=== PATIENT | female | born 2000 | race Hispanic/Latino ===

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

== ENCOUNTER 2021-05-08 18:55 | Emergency (ER) | payer OTHER ==
--- OUTSIDE RECORDS SUMMARY | 2021-05-08 18:58 | XMS REPORT | Continuity of Care Document ---
:2000 Author Organization [facility] Address [address] [place] [address] [address] [place] [address] Care Team Providers Name Role Phone Jyothi Mendoza Attending Clinician Isadora Whittaker Attending Clinician Isadora SERRA Attending Clinician Unavailable Doctor Unassigned, Name Attending Clinician Unavailable Payers Payer Name Policy Type Policy Number Effective Date Expiration Date Emily santa [id number] 2020 00:00:00 Advance Directives Directive Decision Effective Termination Comments Source Date Date Healthcare Agents on N/A Univ ersity FileNameRelationshipHealthcare [facility] Agent Medical RelationshipCommunicationC[facility] Clinic Foundation Branch [facility] [phone] (Home) Problems Condition Condition Condition Status Onset Resolution Last Treating Co mments Source Name Details Category Date Date Treatment Clinician Date Screening Screening Disease Active Uni vers examinatio examinatio 09-20 it y of n [place] 00 Medi theresa transmitte transmitte Br anch d disease) d disease) Nexplanon Nexplanon Disease Active Uni vers in place in place 09-20 ity of 00:00: [place] 00 Medical Branch Need for Need for Disease Active Unive rs HPV HPV 09-20 [place] Class 2 Class 2 Disease Active Univers obesity obesity 09-20 [place] of [place] body [place] mass index mass index 00 Me dical (BMI) of (BMI) of Branch 37.0 to 37.0 to 37.9 in 37.9 in adult, adult, unspecifie unspecifie d obesity d obesity type, type, unspecifie unspecifie d whether d whether serious serious comorbidit comorbidit y present y present BMI BMI Disease Active Univers 37.0-37.9, 37.0-37.9, 5-28 it y of adult adult 00:00: [place] 00 Medical Branch Allergies, Adverse Reactions, Alerts Allergy Allergy Status Severity Reaction(s) Onset Inactive Treating Comm ents Source Name Type Date Date Clinician NO KNOWN Drug Active Univers ALLERGIE Class ity of S [facility] Social History Social Habit Start Date Stop Date Quantity Comments Source History SDOH University o f Alcohol Std [place] [facility] Drinks [facility] History SDMS University o f Alcohol Binge [place] [facility] Exposure to Not sure [facility] SARS-CoV-2 [facility] (event) Branch Tobacco use and 2020-10-15 2020-10-15 Never used Universit y of exposure 00:00:00 00:00:00 [facility] Alcohol intake 2020-10-15 2020-10-15 Lifetime University of 00:00:00 00:00:00 non-drinker [facility] (finding) Branch History SDOH 2020-09-20 2020-09-20 1 University o f Alcohol Frequency 00:00:00 00:00:00 [facility] Sex Assigned At [birth year] Universit y of 00:00:00 00:00:00 [facility] Smoking Status Start Date Stop Date Source Unknown if ever smoked Universit y [facility] Never smoker [facility] Medications Ordered Filled Start Stop Current Ordering Indication Dosage Frequency Signature Comments Components Source Medication Medication Date Date Medication? Clinician (SIG) Name Name No known No Univers medications [facility] No known No Univers medications [facility] No known No Univers medications [facility] No known No Univers medications [facility] Immunizations Ordered Filled Immunization Date Status Comments Sourc e Immunization Name Name HPV9 2020-09-20 Completed University of 00:00:00 [facility]9 2020-09-20 Completed University of 00:00:00 [facility] 2020-09-20 Completed University of 00:00:00 [facility] 2020-09-20 Completed University of 00:00:00 [facility] Vital Signs Vital Name Observation Time Observation Value Comments Source Systolic blood 2020-10-15 14:18:00 120 mm[Hg] Univer sity of pressure [place] [facility] Diastolic blood 2020-10-15 14:18:00 80 mm[Hg] Unive rsity of pressure [place] [facility] Heart rate 2020-10-15 14:18:00 78 /min Universi ty [facility] [place] [facility] Body temperature 2020-10-15 14:18:00 36.94 Shahana Univ ersity of [facility] Branch Respiratory rate 2020-10-15 14:18:00 16 /min Univ ersity of [place] [facility] Body height 2020-10-15 14:18:00 160 cm [facility]i ty [facility] [place] [facility] Body weight 2020-10-15 14:18:00 96.344 kg [facility] [place] [facility] BMI 2020-10-15 14:18:00 37.62 kg/m2 [facility] ty [facility] [place] [facility] Systolic blood 2020-09-20 13:24:00 118 mm[Hg] Univer sity of pressure [place] [facility] Diastolic blood 2020-09-20 13:24:00 89 mm[Hg] Unive rsity of pressure [place] [facility] Heart rate 2020-09-20 13:24:00 75 /min [facility]i ty [facility] [place] [facility] Body temperature 2020-09-20 13:24:00 36.78 Shahana Univ ersity of [place] [facility] Respiratory rate 2020-09-20 13:24:00 16 /min Univ ersity of [place] [facility] Body height 2020-09-20 13:24:00 161.3 cm [facility] ty [facility] [place] [facility] Body weight 2020-09-20 13:24:00 96.798 kg [facility] ty [facility] [place] [facility] BMI 2020-09-20 13:24:00 37.21 kg/m2 [facility] [place] [facility] Procedures Procedure Date / Time Performed Performing Clinician Caden ramirez GARDASIL 9 (HPV 9V) 2020-09-20 13:56:31 Yadiel Serra [facility] [place] VACCINE [facility] Branch NOTICE OF PRIVACY 2020-09-20 13:09:22 Doctor Unassigned, No Univ [facility] [place] PRACTICES Name Medical Branch Encounters Start End Encounter Admission Attending Care Care Encounter Source Date/Time Date/Time Type Type Clinicians Facility Department ID 2020-10-22 2020-10-22 Outpatient R [facility] [id number] Univers 08:30:00 08:30:00 [id number] ity [facility] 2020-10-22 2020-10-22 Outpatient R [facility] [id number] Univers 08:30:00 08:30:00 ity [facility] 2020-10-15 2020-10-15 Office Jyothi Hernández [facility] [id number] Univers 08:38:09 09:43:28 Visit Yadiel Serra R [employer]ISK [employer] PRODUCT LIABILITY DIRECTOR [id number] ity of [facility] [id number] [place] as MATERNAL [phone] [facility] & CHILD [address] [place] [address] 2020-10-15 2020-10-15 [facility] [id number] Univers 08:30:00 08:30:00 YUEBRE [id number] ity o [facility] 2020-10-15 2020-10-15 [facility] [id number] Univers 08:30:00 08:30:00 YUECECELIACarol correa o lana [facility] 2020-09-20 2020-09-20 Office Ponce [facility] [id number] Univers 08:14:29 09:03:21 Visit Yadiel Muir [employer]K [employer]OL PRODUCT LIABILITY DIRECTOR [id number] ity of [facility] [id number] [place] as MATERNAL [phone] [facility] & [address] 2020-09-20 2020-09-20 Outpatient R PONCE [facility] [id number] Univers 08:00:00 08:00:00 YUECECELIACarol ity o lana [facility] 2020-09-20 2020-09-20 Orders Doctor PAYNE [id number] Univers 00:00:00 00:00:00 Only Unassigned, TIGRE [id number] ity of Patrick [facility] [id number] [place] as [phone] Medi theresa 009 Branch Results This patient has no known results.
[2021-05-08] MEDS ORDERED: AZITHROMYCIN 250 MG TAB ONE (22:53)
[2021-05-08] MEDS ORDERED: FAMOTIDINE 20 MG TAB ONE (22:53)
--- NOTE | 2021-05-08 23:03 | ER ---
Nurse's Notes [facility] Name: Carolyn Monsalve Age: 20 yrs Sex: Female : 2000 Arrival Date: 05/08/2021 Time: 19:16 Bed 22 Private MD: Diagnosis: Coronavirus infection, unspecified;Acute upper respiratory infection, unspecified;13 weeks gestation of Presentation: 05/08 20:22 Chief complaint: Patient states: i need a covid test; i lost taste and smell todsy and ld1 a cough and congestion since wednesday. Coronavirus screen: Vaccine status: Patient reports receiving the 1st dose of the Covid vaccine. Client denies travel out of the [place] in the last 14 days. Ebola Screen: Patient negative for fever greater than or equal to 101.5 degrees Fahrenheit, and additional compatible Ebola Virus Disease symptoms Patient denies exposure to infectious person. Patient denies travel to an Ebola-affected area in the 21 days before illness onset. Initial Sepsis Screen: Does the patient meet any 2 criteria? No. Patient's initial sepsis screen is negative. Does the patient have a suspected source of infection? No. Patient's initial sepsis screen is negative. Risk Assessment: Do you want to hurt yourself or someone else? Patient reports no desire to harm self or others. Onset of symptoms was May 05, 2020. 20:22 Method Of Arrival: Ambulatory ld1 20:22 Acuity: PATRICK 4 ld1 Triage Assessment: 20:24 General: Appears in no apparent distress. uncomfortable, obese, Behavior is calm, ld1 cooperative, appropriate for age. Pain: Denies pain. 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 - Social history:: Smoking status: Patient denies any tobacco usage or history of. Screenin:40 Abuse screen: Denies threats or abuse. Denies injuries from another. Nutritional ld1 screening: No deficits noted. Tuberculosis screening: No symptoms or risk factors identified. Fall Risk None identified. Assessment: 21:40 Reassessment: See triage assessment. Respiratory: Airway is patent Respiratory effort ld1 is Breath sounds are clear bilaterally. EENT: Throat is pink. Vital Signs: 20:22 BP 138 / 93; Pulse 95; Resp 20; Temp 98.5; Pulse Ox 95% ; Weight 92.53 kg; Height 5 ft. ld1 6 in. (167.64 cm); 20:22 Body Mass Index 32.93 (92.53 kg, 167.64 cm) ld1 ED Course: 19:16 Patient arrived in ED. as 20:24 Triage completed. ld1 20:24 Arm band placed on right wrist. ld1 21:36 Jose E Steele MD is Attending Physician. [facility] 21:39 SARS-COV-2 RT PCR Sent. tw5 21:40 Eliane Palomino, JOEY is Primary Nurse. ld1 21:40 Patient has correct armband on for positive identification. Call light in reach. Pulse ld1 ox on. NIBP on. Door closed. Noise minimized. 21:40 No provider procedures requiring assistance completed. ld1 22:44 Notified ED physician of a critical lab result(s). Covid +. tw5 23:03 Enrrique Tate MD is Referral Physician. nisreen 23:18 Patient did not have IV access during this emergency room visit. ld1 Administered Medications: 22:53 Drug: Zithromax (azithromycin) 500 mg Route: PO; ld1 22:53 Drug: Pepcid (famotidine) 20 mg Route: PO; ld1 23:18 Not Given (not in pyciss): Montelukast 10 mg PO once ld1 Outcome: 23:02 Discharge ordered by . nisreen 23:18 Discharged to home ambulatory. ld1 23:18 Condition: stable 23:18 Discharge instructions given to patient, Instructed on discharge instructions, follow up and referral plans. Demonstrated understanding of instructions, follow-up care. 23:18 Patient left the ED. ld1 Signatures: Jose E Steele MD MD cha Martinez, Amelia as Dibbern, Lauren, JOEY RN ld1 Rosy Jack tw5 Corrections: (The following items were deleted from the chart) 20:24 20:24 Home Meds: Vitamin Oral; ld1 ld1
--- NOTE | 2021-05-08 23:03 | EDPHYS ---
Physician Documentation [facility] Name: Carolyn Monsalve Age: 20 yrs Sex: Female : 2000 Arrival Date: 05/08/2021 Time: 19:16 Bed 22 Private MD: ED Physician Jose E Steele HPI: 05/08 22:51 This 20 yrs old Female presents to ER via Ambulatory with complaints of Cough, nisreen Sore Throat, Vomiting, Fatigue. 22:51 The patient or guardian reports cough, described as mild, flu symptoms, arthralgias, nisreen low-grade fever, myalgias. Onset: The symptoms/episode began/occurred 2 day(s) ago. Severity of symptoms: At their worst the symptoms were mild, in the emergency department the symptoms are unchanged. Modifying factors: The symptoms are alleviated by nothing, the symptoms are aggravated by nothing. Associated signs and symptoms: Pertinent positives: rhinorrhea, sore throat. The patient has experienced similar episodes in the past, several times. TREER: 20:24 LMP 02/2021 ld1 Historical: - Allergies: 20:24 No Known Allergies; ld1 - Home Meds: 20:24 None [Active]; ld1 - PMHx: 20:24 None; ld1 - Immunization history:: Adult Immunizations up to date. - Social history:: Smoking status: Patient denies any tobacco usage or history of. ROS: 22:54 Constitutional: Negative for fever, chills, and weight loss, Eyes: Negative for injury, nisreen pain, redness, and discharge, ENT: Negative for injury, pain, and discharge, Neck: Negative for injury, pain, and swelling, Cardiovascular: Negative for chest pain, palpitations, and edema, Abdomen/GI: Negative for abdominal pain, nausea, vomiting, diarrhea, and constipation, Back: Negative for injury and pain, : Negative for injury, bleeding, discharge, and swelling, MS/Extremity: Negative for injury and deformity, Skin: Negative for injury, rash, and discoloration, Neuro: Negative for headache, weakness, numbness, tingling, and seizure. 22:54 Respiratory: Positive for cough, "sounds productive". 22:54 Abdomen/GI: Positive for abdominal distension. Exam: 22:54 Constitutional: This is a well developed, well nourished patient who is awake, alert, nisreen and in no acute distress. Head/Face: Normocephalic, atraumatic. Eyes: Pupils equal round and reactive to light, extra-ocular motions intact. Lids and lashes normal. Conjunctiva and sclera are non-icteric and not injected. Cornea within normal limits. Periorbital areas with no swelling, redness, or edema. ENT: Nares patent. No nasal discharge, no septal abnormalities noted. Tympanic membranes are normal and external auditory canals are clear. Oropharynx with no redness, swelling, or masses, exudates, or evidence of obstruction, uvula midline. Mucous membranes moist. Neck: Trachea midline, no thyromegaly or masses palpated, and no cervical lymphadenopathy. Supple, full range of motion without nuchal rigidity, or vertebral point tenderness. No Meningismus. Chest/axilla: Normal chest wall appearance and motion. Nontender with no deformity. No lesions are appreciated. Cardiovascular: Regular rate and rhythm with a normal S1 and S2. No gallops, murmurs, or rubs. Normal PMI, no JVD. No pulse deficits. Respiratory: Lungs have equal breath sounds bilaterally, clear to auscultation and percussion. No rales, rhonchi or wheezes noted. No increased work of breathing, no retractions or nasal flaring. Abdomen/GI: Soft, non-tender, with normal bowel sounds. No distension or tympany. No guarding or rebound. No evidence of tenderness throughout. Back: No spinal tenderness. No costovertebral tenderness. Full range of motion. Skin: Warm, dry with normal turgor. Normal color with no rashes, no lesions, and no evidence of cellulitis. MS/ Extremity: Pulses equal, no cyanosis. Neurovascular intact. Full, normal range of motion. Neuro: Awake and alert, GCS 15, oriented to person, place, time, and situation. Cranial nerves II-XII grossly intact. Motor strength 5/5 in all extremities. Sensory grossly intact. Cerebellar exam normal. Normal gait. Psych: Awake, alert, with orientation to person, place and time. Behavior, mood, and affect are within normal limits. Vital Signs: 20:22 BP 138 / 93; Pulse 95; Resp 20; Temp 98.5; Pulse Ox 95% ; Weight 92.53 kg; Height 5 ft. ld1 6 in. (167.64 cm); 20:22 Body Mass Index 32.93 (92.53 kg, 167.64 cm) ld1 MDM: 21:36 Patient medically screened. [facility] 22:57 Differential Diagnosis: Bronchitis Influenza Upper Respiratory Infection Sinusitis nisreen Pharyngitis Otitis Media Viral Syndrome Pneumonia. Data reviewed: vital signs, nurses notes, lab test result(s). Data interpreted: towel stretcher: rate is 95 beats/min, rhythm is regular, Pulse oximetry: on room air is 95 %. Counseling: I had a detailed discussion with the patient and/or guardian regarding: the historical points, exam findings, and any diagnostic results supporting the discharge/admit diagnosis, lab results, the need for outpatient follow up, for definitive care, a family practitioner. 05/08 21:28 Order name: SARS-COV-2 RT PCR EDMS Administered Medications: 22:53 Drug: Zithromax (azithromycin) 500 mg Route: PO; ld1 22:53 Drug: Pepcid (famotidine) 20 mg Route: PO; ld1 23:18 Not Given (not in pyciss): Montelukast 10 mg PO once ld1 Disposition Summary: 05/08/21 23:02 Discharge Ordered Location: Home [facility] Problem: new [facility] Symptoms: have improved nisreen Condition: Stable nisreen Diagnosis - Coronavirus infection, unspecified nisreen - Acute upper respiratory infection, unspecified nisreen - 13 weeks gestation of nisreen Followup: nisreen - With: Private Physician - When: 2 - 3 days - Reason: Recheck today's complaints, Continuance of care, Re-evaluation by your physician Followup: nisreen - With: Enrrique Tate MD - When: 2 - 3 days - Reason: Recheck today's complaints, Continuance of care, Re-evaluation by your physician Discharge Instructions: - Discharge Summary Sheet nisreen - Care nisreen - Upper Respiratory Infection, Adult nisreen - Cool Mist Vaporizer nisreen - Upper Respiratory Infection, Adult, [id number] nisreen - Viral Respiratory Infection, [id number] nisreen - COVID-19 [facility] - COVID-19 Frequently Asked Questions [facility] - 10 Things You Can Do to Manage Your COVID-19 Symptoms at Home - [facility] nisreen - COVID-19: Quarantine vs. Isolation - [facility] Forms: - Medication Reconciliation Form [facility] - Thank You Letter nisreen - Antibiotic Education nisreen - Prescription Opioid Use [facility] Prescriptions: - Pepcid 20 mg Oral Tablet - take 1 tablet by ORAL route every 12 hours for 10 days; 20 tablet; Refills: 0, nisreen Product Selection Permitted - Zithromax Z-Carlos 250 mg Oral Tablet - take 1 tablet by ORAL route as directed for 5 days Day 1 - take two (2) tablets [facility] one time. Day 2, 3, 4 , 5 take one (1) tablet once daily.; 6 tablet; Refills: 0, Product Selection Permitted - Singulair 10 mg Oral Tablet - take 1 tablet by ORAL route At bedtime; 20 tablet; Refills: 0, Product nisreen Selection Permitted Signatures: Dispatcher [employer] EDJose E Blevins MD MD cha Dibbern, Lauren RN RN ld1 Corrections: (The following items were deleted from the chart) 20:24 20:24 Home Meds: Vitamin Oral; ld1 ld1
[2021-05-08 23:36] VITALS: BP 138/93; TEMP 98.5; O2SAT 95
== END 2021-05-08 23:18 | disposition home or self-care (01) ==
LOC: ER 18:55
DX: O98.511 Other viral diseases complicating pregnancy, first trimester (principal); U07.1 COVID-19; Z3A.13 13 weeks gestation of pregnancy; J06.9 Acute upper respiratory infection, unspecified
CPT/HCPCS: 99283; U0003

== ENCOUNTER 2021-06-11 09:15 | Emergency (ER) | payer OTHER ==
--- OUTSIDE RECORDS SUMMARY | 2021-06-11 09:19 | XMS REPORT | Continuity of Care Document ---
:2000 Author Organization [facility] Address [address] [place] [address] [address] [place] [address] Care Team Providers Name Role Phone Jyothi Mendoza Attending Clinician Isadora Whittaker Attending Clinician Isadora SERRA Attending Clinician Unavailable Doctor Unassigned, Name Attending Clinician Unavailable Payers Payer Name Policy Type Policy Number Effective Date Expiration Date Emily santa [id number] 2020 00:00:00 Advance Directives Directive Decision Effective Termination Comments Source Date Date Healthcare Agents on N/A Univ ersity FileNameRelationshipHealthcare [facility] Agent Medical [facility]Communication[facility] [phone] (Home) Problems Condition Condition Condition Status Onset [...] 5-28 it y of adult adult 00:00: [place] 00 Medical Branch Allergies, Adverse Reactions, Alerts Allergy Allergy Status Severity Reaction(s) Onset Inactive Treating Comm ents Source Name Type Date Date Clinician NO KNOWN Drug Active Univers ALLERGIE Class ity of S [facility] Social History Social Habit Start Date Stop Date Quantity Comments Source History SDOH University o f Alcohol Std [place] [facility] History SDSD University o f Alcohol Binge [place] [facility] Exposure to Not sure [facility] SARS-CoV-2 [facility] (event) Branch Tobacco use and 2020-10-15 2020-10-15 Never used Universit y of exposure 00:00:00 00:00:00 [facility] Alcohol intake 2020-10-15 2020-10-15 Lifetime University of 00:00:00 00:00:00 non-drinker [facility] (finding) Branch History SDOH 2020-09-20 2020-09-20 1 University o f Alcohol Frequency 00:00:00 00:00:00 [facility] Sex Assigned At [birth year] Universit y of 00:00:00 00:00:00 [facility] Smoking Status Start Date Stop Date Source Unknown if ever smoked Universit y [facility] Never sm[facility] Medications Ordered Filled Start Stop Current Ordering Indication Dosage Frequency Signature Comments Components Source Medication Medication Date Date Medication? Clinician (SIG) Name Name No known No Univers medications [facility] No known No Univers medications [facility] No known No Univers medications [facility] No known No Univers medications [facility] Immunizations Ordered Filled Immunization Date Status Comments Sourc e Immunization Name Name HPV9 2020-09-20 Completed University of 00:00:00 [facility] 2020-09-20 Completed University of 00:00:00 [facility] 2020-09-20 Completed University of 00:00:00 [facility] 2020-09-20 Completed University of 00:00:00 [facility] Vital Signs Vital Name Observation Time Observation Value Comments Source Systolic blood 2020-10-15 14:18:00 120 mm[Hg] Univer sity of pressure [place] [facility] Diastolic blood 2020-10-15 14:18:00 80 mm[Hg] Unive rsity of pressure [place] [facility] Heart rate 2020-10-15 14:18:00 78 /min Universi ty [facility] [place] [facility] Body temperature 2020-10-15 14:18:00 36.94 Shahana Univ ersity of [facility] Branch Respiratory rate 2020-10-15 14:18:00 16 /min Univ ersity of [place] [facility] Body height 2020-10-15 14:18:00 160 cm [facility]i ty [facility] [place] [facility] Body weight 2020-10-15 14:18:00 96.344 kg [facility] [place] [facility] BMI 2020-10-15 14:18:00 37.62 kg/m2 [facility] [place] [facility] Systolic blood 2020-09-20 13:24:00 118 mm[Hg] Univer sity of pressure [place] [facility] Diastolic blood 2020-09-20 13:24:00 89 mm[Hg] Unive rsity of pressure [place] [facility] Heart rate 2020-09-20 13:24:00 75 /min [facility] [place] [facility] Body temperature 2020-09-20 13:24:00 36.78 Shahana Univ ersity of [place] [facility] Respiratory rate 2020-09-20 13:24:00 16 /min Univ ersity of [place] [facility] Body height 2020-09-20 13:24:00 161.3 cm [facility] [place] [facility] Body weight 2020-09-20 13:24:00 96.798 kg [facility] [place] [facility] BMI 2020-09-20 13:24:00 37.21 kg/m2 [facility] [place] [facility] Procedures Procedure Date / Time Performed Performing Clinician Caden ramirez GARDASIL 9 (HPV 9V) 2020-09-20 13:56:31 [facility]adiel Serra [facility] [place] VACCINE [facility] Branch NOTICE OF PRIVACY 2020-09-20 13:09:22 Doctor Unassigned, No [facility] [place] PRACTICES Name Medical Branch Encounters Start End Encounter Admission Attending Care Care Encounter Source Date/Time Date/Time Type Type Clinicians Facility Department ID 2020-10-22 2020-10-[address] [facility] [id number] Univers 08:30:00 08:30:00 [id number] ity [facility] 2020-10-22 2020-10-[address] [facility] [id number] Univers 08:30:00 08:30:00 ity [facility] 2020-10-15 2020-10-15 Office Jyothi Hernández [facility] [id number] Univers 08:38:09 09:43:28 Visit Yadiel Serra R [employer] [id number] ity of [facility] [id number] [place] as MATERNAL [phone] [facility] & CHILD [address] [place] [address] 2020-10-15 2020-10-15 [facility] [id number] Univers 08:30:00 08:30:00 YUEBRE [id number] ity o [facility] 2020-10-15 2020-10-15 [facility] [id number] Univers 08:30:00 08:30:00 YUECECELIACarol correa o lana [facility] 2020-09-20 2020-09-20 Office Ponce [facility] [id number] Univers 08:14:29 09:03:21 Visit Yadiel Muir [employer] [id number] ity of [facility] [id number] [place] as MATERNAL [phone] [facility] & [address] 2020-09-20 2020-09-[address] [facility] [id number] Univers 08:00:00 08:00:00 YUECECELIACarol ity o lana [facility] 2020-09-20 2020-09-20 Orders Doctor PAYNE [id number] Univers 00:00:00 00:00:00 Only Unassigned, TIGRE [id number] ity of [place] [facility] [id number] [place] as [phone] Medi theresa 009 Branch Results This patient has no known results.
[2021-06-11 09:47] LABS: Urine Blood 1+ (Negative); Urine Glucose Negative (Negative); Urine Protein Negative (Negative)
[2021-06-11 09:51] LABS: Absolute Lymphocytes (CBC) 1.7 K/uL (0.7-4.9); Hematocrit 39.3 % (36.0-45.0); Lymphocytes % 18.8 % (15.3-44.8); MPV 8.3 fL (7.6-11.3); RBC Red Blood Cell Count 4.52 M/uL (3.86-4.86)
[2021-06-11 10:42] LABS: ALT/SGPT 28 U/L (12-78); AST/SGOT 13 U/L (15-37); Alkaline Phosphatase 88 U/L (45-117); BUN Blood Urea Nitrogen 3 mg/dL (7-18); Bicarbonate 23 mmol/L (21-32); Bilirubin Direct < 0.1 mg/dL (0-0.2); Bilirubin Total 0.2 mg/dL (0.2-1.0); Glucose Level 107 mg/dL (74-106); HCG, Quantitative 17954 mIU/mL (1-3); Lipase 60 U/L (73-393); Potassium 3.6 mmol/L (3.5-5.1); Protein, Total 7.1 g/dL (6.4-8.2); Sodium Level 138 mmol/L (136-145)
[2021-06-11] MEDS ORDERED: ACETAMINOPHEN 500 MG TAB ONE (10:43)
--- NOTE | 2021-06-11 12:29 | RAD REPORT ---
EXAM DESCRIPTION: US - OB Limited - 06/11/2021 11:32 am CLINICAL HISTORY: with vaginal bleeding COMPARISON: None FINDINGS: Limited OB ultrasound performed at of the emergency room for vaginal bleeding. Single live intrauterine in cephalic presentation. Placenta is fundal. No placenta previa. No retroplacental/ subchorionic bleed. Amniotic fluid within normal limits. Cervix 4.3 centimeters. C ardiac activity 179 beats per minute BPD 3.7 centimeters 17 weeks 2 days HC 13.5 centimeters 17 weeks 0 days AC 11.7 centimeters 17 weeks 4 days FL 2.3 centimeter 17 weeks 0 days Estimated weight 186 grams ratios within normal limits IMPRESSION: Single live intrauterine in cephalic presentation The estimated gestational age 17 weeks 2 days INGRID 11/17/2021 If a survey is desired it should be performed in approximately 1 week
[2021-06-11 13:27] LABS: Urine Bacteria 20-50 /HPF (<20); Urine RBC <5 /HPF (NONE SEEN)
--- NOTE | 2021-06-11 14:19 | ER ---
Nurse's Notes [facility] Name: Carolyn Monsalve Age: 20 yrs Sex: Female : 2000 Arrival Date: 06/11/2021 Time: 09:18 Bed 24 Private MD: Diagnosis: Threatened ;UTI/ Urinary tract infection, site not specified Presentation: 06/11 09:24 Chief complaint: Patient states: I am 17 weeks and I woke up this morning with jg9 bleeding, so far I have only used 1 pad, but I am having some cramping in my lower abdomen that is intermittent, no recent sexual activity or injuries reported. 2 Para 1, INGRID 11/13/2021, patient is not under the care of a obgyn. Coronavirus screen: Vaccine status: Patient reports receiving the 1st dose of the Covid vaccine. Moderna. Ebola Screen: Patient negative for fever greater than or equal to 101.5 degrees Fahrenheit, and additional compatible Ebola Virus Disease symptoms Patient denies exposure to infectious person. Patient denies travel to an Ebola-affected area in the 21 days before illness onset. Initial Sepsis Screen: Does the patient meet any 2 criteria? No. Patient's initial sepsis screen is negative. Does the patient have a suspected source of infection? No. Patient's initial sepsis screen is negative. Risk Assessment: Do you want to hurt yourself or someone else? Patient reports no desire to harm self or others. Onset of symptoms was June 11, 2021. 09:24 Method Of Arrival: Ambulatory 9 09:24 Acuity: PATIRCK 3 jg9 Triage Assessment: 09:28 : Reports vaginal bleeding that is with clots, light flow. jg9 09:28 General: Appears uncomfortable, Behavior is anxious. Pain: Complains of pain in abdomen jg9 Pain currently is 5 out of 10 on a pain scale. 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 - Social history:: Smoking status: Patient denies any tobacco usage or history of. Screenin:27 Abuse screen: Denies threats or abuse. Denies injuries from another. Nutritional jg9 screening: No deficits noted. Tuberculosis screening: No symptoms or risk factors identified. Fall Risk None identified. Assessment: 10:44 General: Appears in no apparent distress. comfortable, Behavior is calm, cooperative. ic1 Pain: Complains of pain in abdomen. Neuro: Level of Consciousness is awake, alert, obeys commands, Oriented to person, place, time, situation. Cardiovascular: No deficits noted. Respiratory: No deficits noted. GI: No deficits noted. : Urine is clear, Reports cramping, pain. EENT: No deficits noted. Derm: No deficits noted. 11:50 Reassessment: Pt returned from ultrasound. In NAD. ic1 Vital Signs: 09:24 BP 133 / 86; Pulse 89; Resp 14 S; Temp 98.1(TE); Pulse Ox 100% on R/A; Weight 92.53 kg jg9 (R); Height 5 ft. 3 in. (160.02 cm) (R); 10:44 BP 100 / 68; Pulse 66; Resp 16; Pulse Ox 99% on R/A; ic1 12:40 BP 101 / 66; Pulse 72; Resp 16; Pulse Ox 99% on R/A; ic1 14:23 BP 110 / 66; Pulse 67; Resp 16; Pulse Ox 100% on R/A; ic1 09:24 Body Mass Index 36.14 (92.53 kg, 160.02 cm) jg9 ED Course: 09:18 Patient arrived in ED. mr 09:27 Triage completed. jg9 09:28 Arm band placed on left wrist. jg9 09:30 Perla Kay, JOEY is Primary Nurse. ic1 09:36 Jose E Hoang PA is PHCP. cp 09:36 Florencio Grant MD is Attending Physician. cp 09:47 Basic Metabolic Panel Sent. ic1 09:47 Hepatic Function Sent. ic1 09:47 CBC with Diff Sent. ic1 09:47 Lipase Sent. ic1 10:35 Abo/rh Typing Sent. ic1 10:35 Urine --Ancillary (enter results) Sent. ic1 10:45 Patient has correct armband on for positive identification. Bed in low position. Call ic1 light in reach. Side rails up X2. Pulse ox on. NIBP on. Door closed. Lights dimmed. Warm blanket given. 10:45 Inserted saline lock: 20 gauge in right antecubital area, using aseptic technique. ic1 Blood collected. 11:25 OB Limited In Process Unspecified. EDMS 14:17 Enrrique Tate MD is Referral Physician. cp 14:20 IV discontinued, intact, bleeding controlled, No redness/swelling at site. Pressure ic1 dressing applied. Administered Medications: 10:44 Drug: Tylenol 1000 mg Route: PO; ic1 14:27 Follow up: Response: No adverse reaction; Pain is decreased ic1 Point of Care Testing: Urine : 10:44 hCG Reading: Positive; Control Reading: Positive; ic1 Outcome: 14:18 Discharge ordered by . cp 14:20 Discharged to home ambulatory. ic1 14:20 Condition: stable 14:20 Discharge instructions given to patient, Instructed on discharge instructions, follow up and referral plans. 14:27 Patient left the ED. ic1 Signatures: Dispatcher [employer] EDFL MartinsCharla gonzalez Jose E Hoang, Lilia Mcdonald cp, RN RN jg9 Perla Kay RN RN ic1 Corrections: (The following items were deleted from the chart) 09:34 09:24 Chief complaint: Patient states: I am 17 weeks and I woke up this jg9 morning with bleeding, so far I have only used 1 pad, but I am having some cramping in my lower abdomen that is intermittent, no recent sexual activity or injuries reported. 2 Para 1 jg9 10:37 10:36 Temp 100.3F Oral; ic1 ic1 11:25 11:23 In radiology for Transvaginal Ob+US.RAD.BRZ. EDMS EDMS
--- NOTE | 2021-06-11 14:19 | EDPHYS ---
Physician Documentation [facility] Name: Carolyn Monsalve Age: 20 yrs Sex: Female : 2000 Arrival Date: 06/11/2021 Time: 09:18 Bed 24 Private MD: ED Physician Florencio Grant HPI: 06/11 09:40 This 20 yrs old Female presents to ER via Ambulatory with complaints of cp Vaginal Bleeding, 17 wks . 09:40 The patient presents to the emergency department with vaginal bleeding, with clots. cp 09:40 The estimated gestational age is 17 weeks. course: care: private OB cp physician, Dr. Tate, Leakage of Fluid: none appreciated, Ultrasound: the patient has not had an ultrasound. Previous pregnancies: in previous pregnancies patient has had vaginal delivery, no complications. Associated signs and symptoms: Pertinent positives: lower abdominal cramping. 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 - Social history:: Smoking status: Patient denies any tobacco usage or history of. ROS: 09:45 Constitutional: Negative for body aches, chills, fever, poor PO intake. cp 09:45 Eyes: Negative for injury, pain, redness, and discharge. cp 09:45 Cardiovascular: Negative for chest pain, palpitations. 09:45 Respiratory: Negative for cough, shortness of breath, wheezing. 09:45 Abdomen/GI: Positive for abdominal cramps, Negative for vomiting, diarrhea, constipation. 09:45 : Positive for vaginal bleeding, Negative for urinary symptoms. 09:45 Neuro: Negative for altered mental status, headache, syncope, weakness. 09:45 All other systems are negative. Exam: 09:50 Constitutional: The patient appears in no acute distress, alert, awake, non-toxic, well cp developed, well nourished, obese. 09:50 Head/Face: Normocephalic, atraumatic. cp 09:50 Eyes: Periorbital structures: appear normal, Conjunctiva: normal, no exudate, no injection, Sclera: no appreciated abnormality, Lids and lashes: appear normal, bilaterally. 09:50 ENT: External ear(s): are unremarkable, Nose: is normal, Mouth: Lips: moist, Oral mucosa: moist, Posterior pharynx: is normal, airway is patent. 09:50 Chest/axilla: Inspection: normal, Palpation: is normal, no crepitus, no tenderness. 09:50 Cardiovascular: Rate: normal, Rhythm: regular. 09:50 Respiratory: the patient does not display signs of respiratory distress, Respirations: normal, no use of accessory muscles, no retractions, labored breathing, is not present, Breath sounds: are clear throughout, no decreased breath sounds. 09:50 Abdomen/GI: Inspection: abdomen appears normal, Bowel sounds: active, all quadrants, Palpation: soft, in all quadrants, mild abdominal tenderness, in the right lower quadrant and left lower quadrant, rebound tenderness, is not appreciated, involuntary guarding, is not appreciated. 09:50 Back: CVA tenderness, is absent. 09:50 Neuro: Orientation: to person, place \T\ time. Mentation: is normal, Motor: moves all fours, strength is normal, Sensation: is normal. Vital Signs: 09:24 BP 133 / 86; Pulse 89; Resp 14 S; Temp 98.1(TE); Pulse Ox 100% on R/A; Weight 92.53 kg jg9 (R); Height 5 ft. 3 in. (160.02 cm) (R); 10:44 BP 100 / 68; Pulse 66; Resp 16; Pulse Ox 99% on R/A; ic1 12:40 BP 101 / 66; Pulse 72; Resp 16; Pulse Ox 99% on R/A; ic1 14:23 BP 110 / 66; Pulse 67; Resp 16; Pulse Ox 100% on R/A; ic1 09:24 Body Mass Index 36.14 (92.53 kg, 160.02 cm) jg9 MDM: 09:37 Patient medically screened. 14:18 Data reviewed: vital signs, nurses notes, lab test result(s), radiologic studies, cp ultrasound. 14:18 Counseling: I had a detailed discussion with the patient and/or guardian regarding: the cp historical points, exam findings, and any diagnostic results supporting the discharge/admit diagnosis, lab results, radiology results, the need for outpatient follow up, an OB/Gyne specialist, to return to the emergency department if symptoms worsen or persist or if there are any questions or concerns that arise at home. Response to treatment: the patient's symptoms have markedly improved after treatment, VSS. Patient denies any vaginal bleeding at this time. Discussed results of US showing 17 week IUP. Will discharge to home for continued monitoring. 06/11 09:32 Order name: Basic Metabolic Panel; Complete Time: 11:45 [facility] 06/11 11:45 Interpretation: Normal except: CL 109; GLUC 107; BUN 3; CRE 0.53. 06/11 09:32 Order name: CBC with Diff; Complete Time: 10:42 [facility] 06/11 10:42 Interpretation: Normal except: YVAN% 75.8. 06/11 09:32 Order name: Hepatic Function; Complete Time: 11:45 [facility] 06/11 11:45 Interpretation: Normal except: AST 13; ALB 3.0; GLOB 4.1; A/G 0.7. 06/11 09:32 Order name: Lipase; Complete Time: 11:45 [facility] 06/11 09:32 Order name: HCG-Quantitative; Complete Time: 11:45 [facility] 06/11 11:45 Interpretation: Reviewed. 06/11 09:40 Order name: Abo/rh Typing; Complete Time: 11:45 cp 06/11 09:46 Order name: Urine Dipstick-Ancillary; Complete Time: 10:42 EDKY 06/11 09:47 Order name: Urine --Ancillary (enter results) bd 06/11 09:47 Order name: Urine --Ancillary; Complete Time: 14:17 EDKY 06/11 11:25 Order name: OB Limited; Complete Time: 12:52 EDMS 06/11 12:54 Order name: Urine Microscopic Only cp 06/11 12:54 Order name: Urine Microscopic Only; Complete Time: 14:17 EDMS 06/11 13:28 Order name: Urine Culture [facility] 06/11 09:32 Order name: IV Saline Lock; Complete Time: 09:47 [facility] 06/11 09:32 Order name: Labs collected and sent; Complete Time: 09:47 [facility] 06/11 09:40 Order name: NPO; Complete Time: 09:56 cp Administered Medications: 10:44 Drug: Tylenol 1000 mg Route: PO; ic1 14:27 Follow up: Response: No adverse reaction; Pain is decreased ic1 Point of Care Testing: Urine : 10:44 hCG Reading: Positive; Control Reading: Positive; ic1 Disposition Summary: 06/11/21 14:18 Discharge Ordered Location: Home cp Problem: new cp Symptoms: have improved cp Condition: Stable cp Diagnosis - Threatened cp - UTI/ Urinary tract infection, site not specified cp Followup: cp - With: Enrrique Tate MD - When: 1 week - Reason: Recheck today's complaints Discharge Instructions: - Discharge Summary Sheet cp - Abdominal Pain During cp - Care cp - Threatened Miscarriage cp - Vaginal Bleeding During , Second Trimester cp - and Urinary Tract Infection cp Forms: - Medication Reconciliation Form cp - Thank You Letter cp - Antibiotic Education cp - Prescription Opioid Use cp Prescriptions: - Macrobid 100 mg Oral Capsule - take 1 capsule by ORAL route every 12 hours for 7 days; 14 capsule; Refills: 0, cp Product Selection Permitted Addendum: 06/13/2021 19:14 Co-signature as Attending Physician, Florencio rGant MD I agree with the assessment and k dr plan of care. Signatures: Dispatcher [employer] Florencio Vaughn MD MD [facility] Jose E Hoang PA PA cp Lilia Perez RN RN jg9 Perla Kay RN RN ic1 Corrections: (The following items were deleted from the chart) 06/11 11:25 10:42 Transvaginal Ob+US.RAD.BRZ ordered. [facility]
[2021-06-11 14:40] VITALS: TEMP 98.1
[2021-06-11 14:44] VITALS: BP 110/66; O2SAT 100
== END 2021-06-11 14:27 | disposition home or self-care (01) ==
LOC: ER 09:15
DX: O20.0 Threatened abortion (principal); O23.42 Unspecified infection of urinary tract in pregnancy, second trimester; N39.0 Urinary tract infection, site not specified; Z3A.17 17 weeks gestation of pregnancy
CPT/HCPCS: 36415; 76815; 80048; 80076; 81003; 81015; 81025; 83690; 84702; 85025; 86900; 86901; 87086; 87088; 99284

== ENCOUNTER 2021-10-03 12:37 | Emergency (ER) | payer OTHER ==
--- OUTSIDE RECORDS SUMMARY | 2021-10-03 12:40 | XMS REPORT | Continuity of Care Document ---
:[address] [facility] t Address [address] [place] [address] [address]. [address] [place] [address] Care Team Providers Name Role Phone Jyothi Mendoza Attending Clinician Isadora Whittaker Attending Clinician Isadora SERRA Attending Clinician Unavailable Doctor Unassigned, Name Attending Clinician Unavailable Payers Payer Name Policy Type Policy Number Effective Date Expiration Date Emily santa [id number] 2020 00:00:00 Problems Condition Condition Condition Status Onset Resolution Last Treating Co mments Source Name Details Category Date Date Treatment Clinician Date Screening Screening Disease Active Uni vers examinatio examinatio 09-20 it y of n for STD n for STD 00:00: Sue s (sexually (sexually 00 Medi theresa transmitte [...] BMI BMI Disease Active Univers 37.0-37.9, 37.0-37.9, -28 it y of adult adult 00:00: [address] Allergies, Adverse Reactions, Alerts Allergy Allergy Status Severity Reaction(s) Onset Inactive Treating Comm ents Source Name Type Date Date Clinician NO KNOWN Drug Active Univers ALLERGIE Class ity of S [facility] Social History Social Habit Start Date Stop Date Quantity Comments Source History SDAR University o f Alcohol Std [facility] History SDAR University o f Alcohol Binge [facility] Exposure to Not sure University SARS-CoV-2 [facility] (event) Branch Tobacco use and 2020-10-15 2020-10-15 Never used Universit y of exposure 00:00:00 00:00:00 [facility] Alcohol intake 2020-10-15 2020-10-15 Lifetime University 00:00:00 00:00:00 non-drinker [facility] (finding) Branch History SDOH 2020-09-20 2020-09-20 1 University o f Alcohol Frequency 00:00:00 00:00:00 [facility] edical [place] Sex Assigned At [birth year] Universit y of 00:00:00 00:00:00 [facility] Smoking Status Start Date Stop Date Source Unknown if ever smoked Universit y [facility] Never smoker [facility] Medications Ordered Filled Start Stop Current Ordering Indication Dosage Frequency Signature Comments Components Source Medication Medication Date Date Medication? Clinician (SIG) Name Name No known No Univers medications [facility] No known No Univers medications [facility] No known No Univers medications [facility] No known No Univers medications [facility] Immunizations Ordered Filled Immunization Date Status Comments Sourc e Immunization Name Name [facility] 2020-09-20 Completed University of 00:00:00 [facility] 2020-09-20 Completed University of 00:00:00 [facility] 2020-09-20 Completed University of 00:00:00 [place] [id number] 2020-09-20 Completed [facility] 00:00:00 [facility] Vital Signs Vital Name Observation Time Observation Value Comments Source Systolic blood 2020-10-15 14:18:00 120 mm[Hg] Univer sity of pressure [facility] Diastolic blood 2020-10-15 14:18:00 80 mm[Hg] Unive rsity of [facility] Heart rate 2020-10-15 14:18:00 78 /min [facility] Body temperature 2020-10-15 14:18:00 36.94 Shahana Univ ers[facility] Respiratory rate 2020-10-15 14:18:00 16 /min Univ [facility] Body height 2020-10-15 14:18:00 160 cm [facility] Body weight 2020-10-15 14:18:00 96.344 kg [facility] BMI 2020-10-15 14:18:00 37.62 kg/m2 [facility] Systolic blood 2020-09-20 13:24:00 118 mm[Hg] Univer sity of pressure [facility] Diastolic blood 2020-09-20 13:24:00 89 mm[Hg] Unive rsity of [facility] Branch Heart rate 2020-09-20 13:24:00 75 /min [facility] Body temperature 2020-09-20 13:24:00 36.78 Shahana Univ ers[facility] Respiratory rate 2020-09-20 13:24:00 16 /min Univ [facility] Body height 2020-09-20 13:24:00 161.3 cm [facility] Body weight 2020-09-20 13:24:00 96.798 kg [facility] BMI 2020-09-20 13:24:00 37.21 kg/m2 [facility] Procedures Procedure Date / Time Performed Performing Clinician [facility] e GARDASIL 9 (HPV 9V) 2020-09-20 13:56:31 Yadiel Serra rsity of [place] VACCINE [facility] Branch NOTICE OF PRIVACY 2020-09-20 13:09:22 Doctor Unassigned, No [facility] Name Medical Branch Encounters Start End Encounter Admission Attending Care Care Encounter Source Date/Time Date/Time Type Type Clinicians Facility Department ID 2020-10-22 2020-10-22 Outpatient R [facility] [id number] Univers 08:30:00 08:30:00 [id number] ity of [facility] 2020-10-22 2020-10-22 Outpatient R [facility] [id number] Univers 08:30:00 08:30:00 ity of [facility] 2020-10-15 2020-10-15 Office Jyothi Hernández Darell [facility] [id number] Univers 08:38:09 09:43:28 Visit Yadiel Serra Isadora RIDE ATTENDANT [id number] ity of REGIONAL [id number] [place] as MATERNAL [id number] [facility] & [address] 2020-10-15 2020-10-15 [facility] [id number] Univers 08:30:00 08:30:00 YADIEL [id number] itkalen o [facility] 2020-10-15 2020-10-15 Outpatient [facility] [id number] Univers 08:30:00 08:30:00 BENIELROY correa o [facility] 2020-09-20 2020-09-20 [facility] [id number] Univers 08:14:29 09:03:21 Visit Yadiel Isadora RIDE ATTENDANT [id number] ity of REGIONAL [id number] [place] as MATERNAL [id number] [facility] & [address] 2020-09-20 2020-09-20 Outpatient [facility] [id number] Univers 08:00:00 08:00:00 BENIELROY correa o [facility] 2020-09-20 2020-09-20 Orders Doctor PAYNE [id number] Univers 00:00:00 00:00:00 Only Unassigned, TIGRE [id number] ity of [place] [facility] [id number] [place] as [id number] [place] [id number] Branch Results This patient has no known results.
[2021-10-03] MEDS ORDERED: MORPHINE 2 MG/ML SYR ONE (13:42)
[2021-10-03] MEDS ORDERED: NA CHLORIDE 0.9% 1,000 ML ONE (13:42)
[2021-10-03] MEDS ORDERED: ONDANSETRON 4 MG/2 ML VIAL ONE (13:42)
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
[2021-10-03 15:33] VITALS: TEMP 98.2; O2SAT 98
[2021-10-03 15:35] VITALS: BP 113/64
== END 2021-10-03 15:29 | disposition home or self-care (01) ==
LOC: ER 12:37
DX: O9A.213 Injury, poisoning and certain other consequences of external causes complicating pregnancy, third trimester (principal); S13.4XXA Sprain of ligaments of cervical spine, initial encounter; Z3A.34 34 weeks gestation of pregnancy; V49.59XA Passenger injured in collision with other motor vehicles in traffic accident, initial encounter; O24.419 Gestational diabetes mellitus in pregnancy, unspecified control
CPT/HCPCS: 70450; 72125; 71045; 72070; 96375; 96374; 99284; J2270; J7030; J2405

== ENCOUNTER 2021-11-05 16:30 | Inpatient (IN) | payer OTHER ==
[~2021-11-05 16:30] MED LIST: BUTORPHANOL 1 MG/ML INJ IV PRN; PROMETHAZINE INJ 25 MG/ML AMP IM PRN; Ringers Lactate 1,000 ML IV PRN; miSOPROStoL 100 MCG TAB VAG ONE
[2021-11-05] MEDS: Ringers Lactate 1,000 ML IV SCH ×2 (16:50→21:30)
[2021-11-05 17:16] VITALS: BMI 39.9
[2021-11-05 17:51] LABS: Absolute Lymphocytes (CBC) 1.4 K/uL (0.7-4.9); Hematocrit 33.9 % (36.0-45.0); Lymphocytes % 13.5 % (15.3-44.8); MPV 8.2 fL (7.6-11.3); RBC Red Blood Cell Count 4.09 M/uL (3.86-4.86)
[2021-11-05 17:53] LABS: Urine Appearance Clear (Clear); Urine Bilirubin Negative (Negative); Urine Blood Negative (Negative); Urine Color Yellow (Yellow); Urine Glucose Negative (Negative); Urine Protein Negative (Negative); Urine Urobilinogen 0.2 mg/dL (0.2-1.0); Urine pH 6.5 (5.0-7.0)
[2021-11-05 17:59] LABS: Urine Bacteria NONE SEEN /HPF (<20); Urine RBC <5 /HPF (NONE SEEN)
[2021-11-05] MEDS ORDERED: ZOLPIDEM TARTRATE 10 MG TABLET PO PRN (21:23)
[2021-11-05] MEDS ORDERED: ZOLPIDEM TARTRATE 5 MG TABLET ONE (21:33)
[2021-11-05] MEDS ORDERED: LIDOCAINE 1% MPF 30 ML VIAL SQ ONE (21:33)
[2021-11-05] MEDS ORDERED: CARBOPROST TROME 250 MCG/ML IM ONE (21:33)
--- NOTE | 2021-11-05 21:46 | PREOPHP ---
Date of Admission: 11/05/2021 History Of Present Illness: Carolyn Monsalve is a 20-year-old 2, para 1, followed antepartum, noted to have diabetes, also positive for COVID zero symptoms for induction secondary to the diabete s 1 day early at this point, short of 39 weeks. Family History: Maternal grandmother with diabetes. Past Medical History: No serious medical illnesses in the past. Allergies: NO ALLERGIES. Medications: vitamins taking prior to admission. Social History: Does not smoke. Physical Examination: HEENT: Clear. Pupils equal, round, reactive to light and accommodation. Conjunctivae well perfused . No oral, lingual, or buccal lesions. Chest and Lungs: Clear. Heart: Without murmurs, thrills, heaves, or rubs. Breasts: Without masses on previous visits. Abdomen: Term size. Extremities: Clear without edema, cyanosis, or clubbing. Assessment And Plan: Cervix is about 1.5 cm. Baby is vertex. 50 mcg Cytotec will be inserted every 6 hours for a total of 3 doses if needed. Full discussion prior to admission. The patient had Cyto jeramy induction with her first as well. Anticipate delivery sometime tomorrow. BARRY/MILE Voice ID: [id number]
[2021-11-05] MEDS ORDERED: miSOPROStoL 100 MCG TAB ONE (23:02)
[2021-11-05] MEDS: miSOPROStoL 100 MCG TAB VAG PRN (23:10)
[2021-11-06] MEDS ORDERED: LIDOCAINE 1% MPF 30 ML VIAL SQ ONE (01:23)
[2021-11-06] MEDS ORDERED: OXYTOCIN/LR 20 UNIT/1,000 ML BAG IV SCH (04:00)
[2021-11-06] MEDS: miSOPROStoL 100 MCG TAB VAG PRN (04:50)
[2021-11-06] MEDS: Ringers Lactate 1,000 ML IV SCH (05:01)
--- NOTE | 2021-11-06 07:53 | PN ---
The patient has had 3 doses of Cytotec lasting about 2 hours ago. FHTs are normal. She is now 3 cm, still somewhat posterior, 50% to 60% effaced, rupture of membranes, clear fluid. Anticipate more ra pid progress when she gets to 5 cm. Full labor talk given. BRARY/MILE Voice ID: [id number] Report ID: [id number]
[2021-11-06] MEDS ORDERED: METHYLERGONOVINE 0.2MG/ML AMP IM ONE ×2 (09:25→21:33)
[2021-11-06] MEDS ORDERED: LIDOCAINE 1% MPF 5 ML VIAL SQ ONE (10:00)
[2021-11-06] MEDS ORDERED: BISACODYL 10 MG RECTAL SUPP PR PRN (14:28)
[2021-11-06] MEDS ORDERED: DOCUSATE NA/SENNA CONC 1 TAB PO PRN (14:28)
[2021-11-06] MEDS ORDERED: ACETAMINOPHEN 500 MG TAB PO PRN (14:28)
[2021-11-06] MEDS ORDERED: Oxycodone HCl/Acetaminophen 1 TAB TAB PO PRN (14:28)
[2021-11-06] MEDS ORDERED: DIPHENHYDRAMINE 25 MG TAB/CAP PO PRN (14:28)
--- NOTE | 2021-11-06 15:29 | OP ---
Surgeon: Enrrique Tate MD Procedure In Detail: Carolyn Monsalve is a 20-year-old, 2, para 1, followed antepartum, noted to have gestational diabetes, therefore it was decided proceed with induction at 38 weeks 6 days del chuck 39 weeks. Cytotec was used 250 mcg x3. This morning, the patient was 2.5 to 3 cm, rupture of membranes. The patient went the entire labor without any kind of medication. Used Lamaze breathing techniques to best advantage. After achieving complete basically 2 to 3 pushes, delivery of a 7-poun d 2-ounce female, Apgars 9 and 9. One very small laceration required 2 [id number] stitches of 2 -0 chromic. After local infiltration, Schultze delivery of the placenta. Uterus mildly hypotonic, c ontracted down well with IV drip Pitocin and massage and 0.2 mg of Methergine IM. Estimated blood lo ss 400 to 425 cc. The patient tolerated all procedures well. Rh positive, immune to rubella, negati ve strep, positive COVID without symptoms. NBC/MODL Voice ID: [id number] Report ID: [id number]
[2021-11-06] MEDS: OXYTOCIN/LR 20 UNIT/1,000 ML BAG IV SCH (15:36)
--- NOTE | 2021-11-06 16:08 | PN ---
Nurses report she was completely dilated. When I checked, she is 4.5, still -1, still about 50% to 6 0% effaced, nowhere near complete. We will continue to increase the Pitocin. She is doing quite wel l with natural childbirth breathing techniques. BARRY/MODL Voice ID: [id number] Report ID: [id number]
[2021-11-06] MEDS: Oxycodone HCl/Acetaminophen 1 TAB TAB PO PRN (20:34)
[2021-11-07] MEDS: Oxycodone HCl/Acetaminophen 1 TAB TAB PO PRN (04:26)
[2021-11-07] MEDS: OXYTOCIN/LR 20 UNIT/1,000 ML BAG IV SCH (07:00)
[2021-11-07] MEDS: IBUPROFEN 600 MG TAB PO PRN ×2 (07:22→13:30)
--- NOTE | 2021-11-07 07:44 | DS ---
Hospital Course: A 20-year-old, 2, para 1, 39 weeks at the time of delivery, diabetic during the . Delivered a 7-pound 2-ounce female, Apgars 9 and 9. Local infiltration for a very s mall first-degree laceration more of a mucosal sybil, 2 stitches 2-0 chromic after local infiltration. Schultze delivery of the placenta, mild uterine hypotonus. 0.2 mg of Methergine IM as well as IV d rip Pitocin and massage. Estimated blood loss 400 cc. Positive for COVID, zero symptoms. Rh positi ve, immune to Rubella. Negative strep. ; afebrile, ambulating, voiding. Lochia is normal . No complaints or problems. She will be dismissed later this afternoon to report back to my office somewhere between 4 and 6 weeks to report any temperature elevation of 100 degrees or greater, sever e pain, heavy bleeding, or any other type of abnormalities. She has had her Tdap immunization. Final Diagnoses: Intrauterine gestation 39 weeks at delivery, diabetes during the , positiv e COVID, no symptoms, mild uterine hypotonus. BARRY/MILE Voice ID: [id number] Report ID: [id number]
[2021-11-07 12:31] VITALS: BP 131/78; TEMP 96.9
[2021-11-07 21:27] LABS: RPR (Rapid Plasma Reagin) NON-REACT (NON-REACT)
== END 2021-11-07 16:20 | disposition home or self-care (01) | DRG 805 ==
LOC: 2ND-WC 16:30
PROVIDERS: ADMIT Specialist; ATTEND Specialist
PROC: 10E0XZZ Delivery of Products of Conception, External Approach (ICD-10-PCS; principal; 2021-11-06)
PROC: 10907ZC Drainage of Amniotic Fluid, Therapeutic from Products of Conception, Via Natural or Artificial Opening (ICD-10-PCS; 2021-11-06)
PROC: 0HQ9XZZ Repair Perineum Skin, External Approach (ICD-10-PCS; 2021-11-06)
PROC: 3E0DXGC Introduction of Other Therapeutic Substance into Mouth and Pharynx, External Approach (ICD-10-PCS; 2021-11-06)
DX: O98.52 Other viral diseases complicating childbirth (principal); U07.1 COVID-19; Z37.0 Single live birth; O24.429 Gestational diabetes mellitus in childbirth, unspecified control; O62.2 Other uterine inertia; O70.0 First degree perineal laceration during delivery; Z3A.38 38 weeks gestation of pregnancy
CPT/HCPCS: 36415; 81003; 81015; 82947; 85025; 86592; 86901; 87086; 87088; 87340; J0595; J2210; J2550; J2590; J7120; U0003